=== PATIENT | male | born 1970 | race Caucasian/White ===

== ENCOUNTER 2017-01-09 21:20 | Inpatient (IN) | payer OTHER ==
--- NOTE | ~2017-01-09 | CO ---
Unit #: [id number] #: [id number] Patient: HARRISON LINARES [id number] [address] [place], [place] [address] [id number] MR#: [id number] NAME: HARRISON LINARES. ROOM: 237 Age: 46 Sex: M Admission Date: 01/10/2017 : 1970 Attending Physician: Cee Davila M.D. Primary Care Physician: Junior Rodriguez M.D. Consultation Date: 01/10/2017 CONSULTATION REPORT CHIEF COMPLAINT Left arm pain and swelling. HISTORY OF PRESENT ILLNESS The patient is a 46-year-old male with poorly-controlled diabetes, who struck his left elbow five days ago and has now developed increasing pain, erythema, swelling, and stiffness. He denies fevers or chills. He is admitted with a presumptive diagnosis of left arm cellulitis. PAST MEDICAL HISTORY Adult-onset diabetes for 30 years, for which he is supposed to take Metformin. He has run out of the medicine two months ago and is not currently taking it. HOME MEDICATIONS Metformin, which he has not taken for two months. PAST SURGICAL HISTORY None. ALLERGIES No known drug allergies. 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 He lives with his sister. He quit smoking 10 years ago. He drinks alcohol occasionally. PHYSICAL EXAMINATION GENERAL: A middle-aged male. He is alert, oriented, cooperative. He is in no acute distress. Height 6 foot tall, weight 224 pounds. VITAL SIGNS: Temperature 98.5, blood pressure 146/71, pulse 100, respirations 20. EXTREMITIES: Evaluation of the left arm demonstrates moderate swelling. He has erythema overlying his elbow as well as the dorsal and volar aspects of his forearm. There is some mild erythema on the medial aspect of his upper arm. No axillary lymphadenopathy is palpated. There is no evidence of fluctuance on the forearm or overlying the elbow. The olecranon bursa is not fluctuant. Range of motion of the elbow is 10 degrees to 110 degrees without significant pain. Pronation and supination is normal. Sensation is normal. Pulses are normal. Motor exam is normal. The patient also notes that he recently accidentally avulsed his left fifth toenail. Evaluation of the left foot demonstrates a cavus deformity. The fifth toenail was absent. There is some mild erythema Unit #: [id number] #: [id number] Patient: HARRISON LINARES around the toe, but there is no evidence of infection. DIAGNOSTIC STUDIES LABORATORY: Hemoglobin 11, hematocrit 32.6, white blood cell count 9.5 thousand with 79% polys, 11% lymphocytes, 8% monocytes. Sed rate on admission is 127. Basic metabolic profile shows a sodium of 132 and glucose of 232. IMAGING: AP and lateral views of the left elbow show no bony changes. The patient does have soft tissue swelling. There is no evidence of effusion of the joint. Left foot x-rays show a cavus deformity without evidence of bony changes, arthritis, fracture, or osteomyelitis. IMPRESSION 1. Left arm and forearm cellulitis without evidence of septic olecranon bursitis. 2. Avulsion left fifth toenail. 3. Poorly controlled noninsulin dependent diabetes. PLAN 1. Continue IV vancomycin and Zosyn. 2. We will follow during this admission to ensure that an abscess does not form in the arm which requires incision and drainage. Currently, there is no need for surgical intervention. Dictated byHeather Alfred/kellen TD: 01/10/2017 10:51 JOB #: [id number] CONSULTATION REPORT Page 1 of 1 X Angela Shay MD X CONSULTATION REPORT
--- NOTE | ~2017-01-09 | CR93 ---
[facility] A Service of [facility] & [facility] RADIOLOGY TEXT RESULTS PATIENT: HARRISON LINARES LOCATION: SED [id number] : [birth year] UNIT #: [id number] AGE: [address]: Cahnda Camp MD SEX: M ORDER DR: [id number] [address] [address] [id number] MR#: [id number] Acc #: [id number] NAME: HARRISON LINARES : 1970 SEX: M STUDY DATE/TIME: 01/09/2017 22:49 UNIT: SED ROOM: STUDY DESCRIPTION: CR Elbow Min 3 Views Lt Attending Physician: Javid Rowe M.D. Ordering Physician: Javid Rowe M.D. Primary Care Physician: Junior Rodriguez M.D. MEDICAL IMAGING REPORT This report is preliminary unless electronic signature is present. EXAM Left elbow INDICATIONS Left elbow pain status post hit elbow on a wall. Laceration. FINDINGS Three views of the left elbow without comparison. There is no acute fracture or dislocation. There is some soft tissue swelling over the olecranon. No foreign body. IMPRESSION Soft tissue swelling over the olecranon. No foreign body. Dictated by... Young Fontenot M.D. THIS IS AN ELECTRONICALLY VERIFIED REPORT Young Fontenot M.D. at 01/10/2017 1:06 AM Angelic/earle TD: 01/10/2017 00:22 JOB #: [id number] MEDICAL IMAGING REPORT Page 1 of 1
--- NOTE | ~2017-01-09 | CR126 ---
[facility]. [facility] A Service of [facility] & [facility] RADIOLOGY TEXT RESULTS PATIENT: HARRISON LINARES LOCATION: [facility] [id number] : [birth year] UNIT #: [id number] AGE: [address]: Chanda Camp MD SEX: M ORDER DR: [id number] [address] [address] [id number] E MR#: [id number] Acc #: [id number] NAME: HARRISON LINARES : 1970 SEX: M STUDY DATE/TIME: 01/09/2017 22:49 UNIT: SED ROOM: STUDY DESCRIPTION: CR Foot Complete Min 3 View Lt Attending Physician: Javid Rowe M.D. Ordering Physician: Javid Rowe M.D. Primary Care Physician: Junior Rodriguez M.D. MEDICAL IMAGING REPORT This report is preliminary unless electronic signature is present. EXAM Left foot INDICATION Laceration to the left foot. Pain. FINDINGS 3 views of the left foot without comparison. There is no acute fracture or dislocation. Alignment is anatomic. No foreign body. IMPRESSION Negative left foot. Dictated by... Young Fontenot M.D. THIS IS AN ELECTRONICALLY VERIFIED REPORT Young Fontenot M.D. at 01/10/2017 1:06 AM KYLE/charles TD: 01/10/2017 00:24 JOB #: [id number] MEDICAL IMAGING REPORT Page 1 of 1
--- NOTE | ~2017-01-09 | DS ---
Unit #: [id number] #: [id number] Patient: HARRISON LINARES [id number] [address] [address] [id number] I MR#: [id number] NAME: HARRISON LINARES ROOM: 237 Age: Sex: M Admission Date: 01/10/2017 : 1970 Discharge Date: 01/14/2017 Attending Physician: Disha Peralta M.D. Primary Care Physician: Junior Rodriguez M.D. DISCHARGE SUMMARY ADDENDUM Please note patient was seen by Infectious Disease and his Zyvox was increased to 14 days and thus he was given 28 tablets total. Dictated by... Disha Peralta M.D. ISABELLA/michelle TD: 01/15/2017 18:57 JOB #: [id number] DISCHARGE SUMMARY Page 1 of 1 X Disha Peralta MD X DISCHARGE SUMMARY
--- NOTE | ~2017-01-09 | HP ---
Unit #: [id number] #: [id number] Patient: HARRISON LINARES [id number] [address] [place], [place] [address] [id number] I MR#: [id number] NAME: HARRISON LINARES. ROOM: 237 Age: 46 Sex: M Admission Date: 01/10/2017 : 1970 Attending Physician: Chanda Camp M.D. Primary Care Physician: Junior Rodriguez M.D. HISTORY AND PHYSICAL CHIEF COMPLAINT Extensive left upper extremity cellulitis and uncontrolled diabetes mellitus. HISTORY This very pleasant, 46-year-old, type 2 diabetic male was transferred from [facility] emergency department for extensive cellulitis of the left upper extremity. Five days ago, the patient developed increasing pain, swelling, and redness of the left upper extremity initially starting around the left elbow. The redness and swelling have extended into the upper left arm and all the way down into the left hand. No fever, sweats, or chills. There are no open areas over the left arm. Patient is diabetic, but ran out of his metformin two months ago. He went to [facility] emergency department where his serum glucose was 397. He has extensive cellulitis of the left upper extremity. Also, on examination, he has superficial wounds over his left fourth and fifth toes with erythema after the left fifth toenail avulsed a couple of weeks ago. He was treated with a liter of saline, Tylenol, vancomycin, Zosyn, and 6 units of IV insulin prior to transfer. His current Accu-Chek is 246. PAST MEDICAL HISTORY AODM x20-30 years. ALLERGIES None. HOME MEDICATIONS Metformin. Patient was taking metformin, but ran out of this medication two months ago. FAMILY HISTORY CAD and diabetes mellitus. SOCIAL HISTORY The patient lives with his sister. He stopped smoking 2006, seldom drinks alcohol, and does not use illicit drugs. REVIEW OF SYSTEMS Notable for pain, swelling, and redness of the left arm with a left foot wound and redness and diabetes mellitus. All other systems were reviewed and otherwise negative. Unit #: [id number] #: [id number] Patient: HARRISON LINARES PHYSICAL EXAMINATION GENERAL APPEARANCE: Very pleasant, 46-year-old, mildly obese male who currently is in no acute distress. VITAL SIGNS: Temperature 99, pulse 119, respirations 16, blood pressure 179/97, and O2 saturation is 100% on room air. HEENT: Eyes: PERRLA. Extraocular muscles are intact. Pharynx is benign with somewhat poor dentition. NECK: Supple without adenopathy or thyromegaly. CHEST: Clear. CARDIAC: Normal S1 and S2 without S3, S4, or murmur. ABDOMEN: Bowels sounds are present. No hepatosplenomegaly, tenderness, or masses. EXTREMITIES: Notable for extensive cellulitis over the left upper extremity from the left upper arm down into the left hand. Patient is able to move his left elbow and straighten out the left elbow. He is able to move the left wrist. Movement does cause pain, but patient has good range of motion. He has quite a bit of swelling near the left elbow as well. Fourth and fifth toes: Nail avulsed left fifth toe, and there is a wound over the fourth left toe with redness of both toes. Pedal pulses are present. No pedal edema. NEUROLOGIC: Patient is awake, alert, and oriented. Cranial nerves are intact. Equal strength throughout. Of note, patient has a good left radial pulse. DIAGNOSTIC STUDIES LABORATORY: Admission labs: Hematocrit is 36.2, white blood count is 10.5, and normal platelet count. Sed rate is 127. SMA-7: Glucose 397 and sodium 128, which corrects to about 134. Urinalysis: 2+ protein, 3+ blood, 5-10 red cells, and no white cells. ASSESSMENT 1. Extensive left upper extremity cellulitis. I suspect patient could have septic left olecranon bursitis as etiology. 2. Wounds and early cellulitis over the left fourth and fifth toes. 3. Uncontrolled type 2 diabetes mellitus, noncompliant with Glucophage. 4. Pseudohyponatremia. 5. Elevated blood pressure. PLANS 1. Zosyn and vancomycin will be continued and will ask orthopedic surgeon to see. 2. IV fluids and supportive treatment. 3. Sliding scale insulin for now and check hemoglobin A1c. Will need to start metformin when stable. 4. C and S of the left foot wound, will add Bactroban and dressings. 5. DVT prophylaxis. 6. Monitor blood pressure and treat if persistently elevated. Dictated by Chanda Camp M.D. TOSHA/pc TD: 01/10/2017 05:55 JOB #: [id number] Unit #: [id number] #: [id number] Patient: HARRISON LINARES HISTORY AND PHYSICAL Page 1 of 1 X Chanda Camp MD X HISTORY AND PHYSICAL
--- NOTE | ~2017-01-09 | DS ---
Unit #: [id number] #: [id number] Patient: HARRISON LINARES [id number] [address] [address] [id number] I MR#: [id number] NAME: HARRISON LINARES ROOM: 237 Age: 46 Sex: M Admission Date: 01/10/2017 : 1970 Discharge Date: 01/14/2017 Attending Physician: Disha Peralta M.D. Primary Care Physician: Junior Rodriguez M.D. DISCHARGE SUMMARY PRIMARY CARE PHYSICIAN Dr. Rodriguez. PRINCIPAL DIAGNOSES 1. Extensive left arm cellulitis. 2. Diabetes mellitus type 2, uncontrolled with hemoglobin A1c of 10.7. 3. Hypertension, controlled. 4. Left fourth and fifth toe cellulitis, mild with methicillin-susceptible Staphylococcus aureus. 5. Obesity. 6. Moderate protein malnutrition. CONSULTANTS 1. Dr. Sullivan, Infectious Disease. 2. Dr. Damon, Orthopedic Surgery. PROCEDURES 1. X-ray of the left elbow on January 09, 2017, with soft tissue swelling over the olecranon. No foreign body. 2. X-ray of left foot on January 09, 2017, which was negative. 3. CT of the left upper extremity with contrast on January 11, 2017, with moderate diffuse subcutaneous stranding throughout the forearm and distal upper arm and over the dorsum of the hand and wrist consistent with cellulitis. There is no evidence of abscess, fracture, or foreign body. CLINICAL HISTORY AND HOSPITAL COURSE Mr. Linares is a 46-year-old male, who presents to the emergency department with redness and swelling of the left arm. In the emergency department, the patient was afebrile, and white blood cell count was normal, however, his glucose was found to be 400. On examination, he had significant cellulitis. He was also found to have cellulitis of the left arm in addition to cellulitis of the left fourth and fifth toes. The patient was subsequently admitted. The patient was started on empiric Zosyn and vancomycin. Initially, Dr. Damon was consulted given there was concern for underlying abscess of the arm given a significant amount of induration. CT scan however did not reveal any abscess and no surgical intervention was done. Dr. Sullivan was consulted given the wound was not improving and antibiotics were changed to Zosyn and Zyvox. With change in antibiotics, the patient's swelling and erythema have significantly improved, though not completely resolved. He has remained afebrile throughout hospitalization. He has had no leukocytosis. I am going to arrange outpatient Zyvox and complete a Unit #: [id number] #: [id number] Patient: HARRISON LINARES course of treatment. As noted above, the patient is significantly hyperglycemic in the emergency department. He is not taking any medications at this time. He was maintained on insulin here, which honestly would be the best option for him, but given his line of work, I do not think it is feasible. I am going to change to back to metformin 1000 mg b.i.d. in addition to glipizide given he does not have insurance and he will need his sugars followed up by Dr. Rodriguez. The patient was also significantly hypertensive. I placed him on metoprolol, lisinopril, and hydrochlorothiazide, and blood pressure still mildly high. I think we will discharge him on these medications and again this can be followed up by Dr. Rodriguez. The patient is otherwise clinically stable and will be discharged home today. DISCHARGE CONDITION Stable. DISCHARGE STATUS Discharged to home. DISCHARGE MEDICATIONS Bactroban ointment topically b.i.d. to left fourth and fifth toes x5 days, metoprolol tartrate 25 mg b.i.d. with 2 refills given, hydrochlorothiazide 25 mg daily with 2 refills given, Zestril 40 mg daily with 2 refills given, metformin 1000 mg b.i.d. with 2 refills given, glipizide 10 mg p.o. daily with 2 refills given, oxycodone 7.5 mg one tablet every 4 hours p.r.n. for pain given #18, and Zyvox 600 mg p.o. b.i.d. for another 7 days. I have also supplied the patient with glucometer and test strips. DISCHARGE INSTRUCTIONS The patient was instructed to follow a heart healthy CCD diet and again he has received instruction. He can increase the activity as tolerated. He will remain off work through January 16, he can return to work on January 17. FOLLOWUP The patient will follow up Dr. Rodriguez in 2 weeks. Time spent on discharge, 34 minutes. Dictated by... Disha Peralta M.D. ISABELLA/rodríguez TD: 01/15/2017 23:42 JOB #: [id number] Unit #: [id number] #: [id number] Patient: HARRISON LINARES DISCHARGE SUMMARY Page 1 of 1 X Disha Peralta MD X DISCHARGE SUMMARY
--- NOTE | ~2017-01-09 | CO ---
Unit #: [id number] #: [id number] Patient: HARRISON LINARES [id number] [address] [place], [place] [address] [id number] MR#: [id number] NAME: HARRISON LINARES ROOM: 237 Age: 46 Sex: M Admission Date: 01/10/2017 : 1970 Attending Physician: Disha Peralta M.D. Primary Care Physician: Junior Rodriguez M.D. Consultation Date: 01/12/2017 CONSULTATION REPORT REQUESTING PHYSICIAN . REASON FOR CONSULTATION Left upper extremity cellulitis. HISTORY OF PRESENT ILLNESS This is a 46-year-old gentleman with type 2 diabetes, who is admitted with pain, redness, and swelling involving the left forearm distal hand and proximal arm, significant septic arthritis or osteomyelitis. He was started on Zyvox, vancomycin, and Zosyn. Culture was obtained from the foot also, which does not have any signs of infection. Blood cultures growing MSSA, but has had probably attributed with the cellulitis of the left upper extremity. There is no evidence of any injury, open wound, abrasion or bites involving the left upper extremity alone. The patient is clinically stable. Does not have any symptoms of sepsis or septic shock at this time. Able to move his wrist and elbow without any problems. PAST MEDICAL HISTORY Diabetes for 30 years, controlled, is not clearly known. MEDICATIONS Home medication, metformin. In the hospital; he is on Zestril, Zyvox, Percocet, Levemir, Bactroban, Lopressor, Zosyn, Florastor, morphine, Percocet. Vancomycin was started, but discontinued today. ALLERGIES None. FAMILY HISTORY Coronary artery disease and diabetes. SOCIAL HISTORY Lives with his sister. He quit smoking in 2006. No alcohol. No drug use. SYSTEMIC REVIEW Left arm pain, redness, and swelling. No fever or chills. No cough, abdominal pain, dysuria. No mental status changes were noted. PHYSICAL EXAMINATION GENERAL: Reveals a young white male, who is awake and alert, in no acute Unit #: [id number] #: [id number] Patient: HARRISON LINARES. VITAL SIGNS: Stable. Temperature 98.4, T-max 99%, respirations 20, heart rate 110, blood pressure 170/90. HEENT: Unremarkable. Oral hygiene is poor. NECK: Supple. No JVD or edema. LUNGS: Clear to percussion and auscultation.. HEART: Sounds are normal. There are no murmurs. ABDOMEN: Soft and nontender without organomegaly or ascites. Bowel sounds normal. NEUROLOGIC: Nonfocal. EXTREMITIES: Left upper extremity examination reveal diffuse cellulitis of the left forearm, that goes through lateral aspect involving the elbow and distal 2 inches of the upper arm. There is also some involvement of the left hand dorsum, mainly on the wrist. Range of motion of wrist and elbow are normal. There is no evidence of a clinical abscess. DIAGNOSTIC LABORATORY DATA White count on admission was 10.5, hemoglobin 11.9, platelet 241, neutrophil 77%. Urinalysis, negative. Sodium 128, potassium 4.5, chloride 91, CO2 is 29, BUN 22, creatinine 1.3. Lactic acid . X-ray of the elbow showed some tissue swelling. No foreign body. Blood cultures, negative in 48 hours. Wound culture, which is actually from clean left foot also shows MSSA that needs to be disregarded, so that is not the pathogen. CT of the forearm shows moderate diffuse subcutaneous stranding throughout the forearm to lesser degree it is still on the upper arm and over the dorsum of the hand and the wrist, consistent with cellulitis. There is no abscess or fracture. IMPRESSION Cellulitis in left upper extremity, most likely Staphylococcus aureus, MRSA to be excluded. RECOMMENDATION I agree with Zyvox and Zosyn at this time with a clinical response and if blood culture becomes positive, further recommendation to follow. Dictated by... Heather Giles/rodríguez TD: 01/14/2017 05:43 JOB #: [id number] CONSULTATION REPORT Page 1 of 1 X Torres Sullivan MD X CONSULTATION REPORT
--- NOTE | ~2017-01-09 | A ---
[facility] Nutrition Therapy DATE: 01/12/17 Patient: HARRISON LINARES Physician: LO Address: [address] [place] [address] Room/Bed: [address] [place] [address], Zip: [place] [id number] Admit Date: 01/10/17 Date of : [birth year] Height: 6 0 Weight: 224 102 NUTRITIONAL ASSESSMENT: REASON: Diabetic diet education consult Admitting dx: 46 y/o male admitted with cellulitis and uncontrolled DM PMH: T2DM x 20-30 yrs Anthropometrics: Ht: 72", Wt: 102 kg, BMI: 30 (stage I obese) Labs: glucose 180, POC 179-209, A1C 10.7 Meds: Reviewed Assessment: Chart reviewed, events noted. Pt ran out of Metformin x [address] provided both verbal and written diabetic diet education with contact info. Pt reports doesn't usually eat breakfast except on the weekends at [employer], meal schedule not consistent. Admits to eating whatever he wants and consuming regular sodas. Lives with his sister who mainly does the grocery shopping, encouraged pt to share handouts with his sister. Pt states he has not received diet education in the past. Understanding of education questionable as the patient was irritated about his IV, seemed to have low motivation and education level, did not want to talk much but was cooperative with the education. RD encouraged dietary and medication compliance and weight loss. Pt did not have any questions at this time. Recommendations: Continue consistent carb diet. Diet education provided as stated above, please consult with any further needs. Respectfully, Joan Rowe, CRISS, LD [facility] and Nutrition[facility] cc: client file
--- NOTE | ~2017-01-09 | CT125 ---
[facility] A Service of [facility] RADIOLOGY TEXT RESULTS PATIENT: HARRISON LINARES LOCATION: [facility] : [birth year] UNIT #: [id number] AGE: [address]: Disha Peralta MD SEX: M ORDER DR: [id number] [facility]. [place], [place] [address] [id number] I MR#: [id number] Acc #: [id number] NAME: HARRISON LINARES. : 1970 SEX: M STUDY DATE/TIME: 01/11/2017 20:40 UNIT: [facility] ROOM: Critical access hospital STUDY DESCRIPTION: CT Upper Ext Lt W Cont Attending Physician: Disha Peralta M.D. Ordering Physician: Physician Non-Staff Primary Care Physician: Junior Rodriguez M.D. MEDICAL IMAGING REPORT This report is preliminary unless electronic signature is present EXAM CT left upper extremity with IV contrast HISTORY Arm swelling and erythema. Symptoms for 1 week. Hit arm on a wall. TECHNIQUE This CT exam was performed with one or more of the following radiation dose reduction techniques: automatic exposure control, adjustment of mA and/or kV according to patient size, and iterative reconstruction. FINDINGS CT left upper extremity was performed from the distal upper arm through the hand, with IV contrast. There is moderate diffuse subcutaneous stranding throughout the forearm and wrist and mild subcutaneous stranding in the distal upper arm and over the dorsum of the hand. The posterior margin of the elbow is partly excluded. No loculated fluid collection or soft tissue gas. No opaque soft tissue foreign body. No fractures identified. IMPRESSION 1. Moderate diffuse subcutaneous stranding throughout the forearm and to a lesser degree in the distal upper arm and over the dorsum of the hand and about the wrist. Findings are suggestive of diffuse edema or cellulitis. 2. No abscess. 3. No fracture. 4. No opaque soft tissue foreign body. 5. Posterior margin of the elbow is partly excluded due to positioning. Dictated by... [facility] A Service [facility] RADIOLOGY TEXT RESULTS PATIENT: HARRISON LINARES LOCATION: [facility] 237-01 : [birth year] UNIT #: [id number] AGE: [address]: Disha Peralta MD SEX: M ORDER DR: Frandy Garcia M.D. THIS IS AN ELECTRONICALLY VERIFIED REPORT Frandy Garcia M.D. at 01/12/2017 2:48 PM JED/jailene TD: 01/12/2017 12:23 JOB #: [id number] MEDICAL IMAGING REPORT Page 1 of 1 COPY
[2017-01-09 22:26] LABS: BASOPHIL% 0.2 % (0-2.5); EOSINOPHIL% 0.3 % (0.0-7.0); HEMATOCRIT 36.2 % (38.0-50.0); HEMOGLOBIN 11.9 gm/dL (13.0-16.0); LYMPHOCYTE# 1.4 X10e3 (1.0-3.5); LYMPHOCYTE% 13.5 % (17.0-45.0); MEAN CORPUSCULAR HEMOGLOBIN 29.7 PG (28-34); MONOCYTE# 0.9 X10e3 (0-1.0); MONOCYTE% 8.8 % (3.0-12.0); NEUTROPHIL# 8.1 X10e3 (1.5-7.1); NEUTROPHIL% 77.2 % (40-75); PLATELET COUNT 241 X10e3 (140-420); RED BLOOD COUNT 4.02 X10e (3.90-5.60); RED CELL DISTRIBUTION WIDTH 12.5 % (11.0-15.5); WHITE BLOOD COUNT 10.5 X10e3 (4.0-10.5)
[2017-01-09 22:29] LABS: DIFF IND NO
[2017-01-09 22:34] LABS: URINE SOURCE CLEAN CATCH
[2017-01-09 22:36] LABS: URINE APPEARANCE CLEAR; URINE BILIRUBIN NEG (NEG); URINE BLOOD 3+ (NEG); URINE COLOR YELLOW; URINE GLUCOSE 300 MG/DL (NORM); URINE KETONE NEG (NEG); URINE LEUKOCYTE ESTERASE NEG (NEG); URINE NITRATE NEG (NEG); URINE PH 5.5 (5-8); URINE PROTEIN 2+ (NEG); URINE UROBILINOGEN 0.2 MG/DL (NORM)
[2017-01-09 22:37] LABS: MICRO INDICATED? YES
[2017-01-09 22:38] LABS: CULTURE INDICATED? NO; URINE BACTERIA NEG (NEG); URINE SQUAMOUS EPITHELIAL CELL FEW /[HPF]; URINE WBC 0-2 /[HPF] (0-5)
[2017-01-09 22:39] LABS: URINE HYALINE CAST 0-2 /[HPF]; URINE MUCUS PRESENT
[2017-01-09 22:42] LABS: BUN/CREATININE RATIO 16.92; CALCIUM SERUM 9.2 mg/dL (8.4-10.2); CREATININE SERUM 1.3 mg/dL (0.6-1.4); GLOM FILT RATE Estimated 65.5 mL/min (>60); POTASSIUM 4.5 mmol/L (3.5-5.1)
[2017-01-10 06:19] LABS: BASOPHIL% 0.2 % (0-2.5); EOSINOPHIL# 0.1 X10e3 (0-0.7); HEMATOCRIT 32.6 % (38.0-50.0); LYMPHOCYTE# 1.1 X10e3 (1.0-3.5); LYMPHOCYTE% 11.4 % (17.0-45.0); MEAN CELL VOLUME 88.7 FL (83-96); MEAN CORPUSCULAR HEMOGLOBIN 29.9 PG (28-34); MEAN CORPUSCULAR HGB CONC 33.7 g/dL (30-36); MEAN PLATELET VOLUME 8.3 FL (6.5-11.5); MONOCYTE# 0.8 X10e3 (0-1.0); MONOCYTE% 8.5 % (3.0-12.0); NEUTROPHIL# 7.5 X10e3 (1.5-7.1); NEUTROPHIL% 78.9 % (40-75); PLATELET COUNT 214 X10e3 (140-420); RED BLOOD COUNT 3.67 X10e (3.90-5.60); RED CELL DISTRIBUTION WIDTH 12.4 % (11.0-15.5); WHITE BLOOD COUNT 9.5 X10e3 (4.0-10.5)
[2017-01-10 06:26] LABS: DIFF IND NO
[2017-01-10 07:26] LABS: BILIRUBIN,TOTAL 0.8 mg/dL (0.2-2.0); CALCIUM SERUM 8.5 mg/dL (8.4-10.2); CREATININE SERUM 0.9 mg/dL (0.6-1.4); GLOM FILT RATE Estimated 102.1 mL/min (>60); POTASSIUM 3.6 mmol/L (3.5-5.1); PROTEIN TOTAL SERUM 6.9 g/dL (6.0-8.3)
[2017-01-11 06:30] LABS: BASOPHIL% 0.1 % (0-2.5); EOSINOPHIL# 0.1 X10e3 (0-0.7); EOSINOPHIL% 0.6 % (0.0-7.0); HEMATOCRIT 35.3 % (38.0-50.0); HEMOGLOBIN 11.8 gm/dL (13.0-16.0); LYMPHOCYTE# 1.1 X10e3 (1.0-3.5); LYMPHOCYTE% 11.4 % (17.0-45.0); MEAN CELL VOLUME 89.7 FL (83-96); MEAN CORPUSCULAR HEMOGLOBIN 29.9 PG (28-34); MEAN CORPUSCULAR HGB CONC 33.3 g/dL (30-36); MEAN PLATELET VOLUME 8.4 FL (6.5-11.5); MONOCYTE# 0.9 X10e3 (0-1.0); MONOCYTE% 8.9 % (3.0-12.0); NEUTROPHIL# 7.6 X10e3 (1.5-7.1); PLATELET COUNT 234 X10e3 (140-420); RED BLOOD COUNT 3.94 X10e (3.90-5.60); RED CELL DISTRIBUTION WIDTH 12.8 % (11.0-15.5); WHITE BLOOD COUNT 9.6 X10e3 (4.0-10.5)
[2017-01-11 06:31] LABS: DIFF IND NO
[2017-01-11 07:24] LABS: ALBUMIN SERUM 2.9 g/dL (3.5-5.0); BILIRUBIN,TOTAL 0.4 mg/dL (0.2-2.0); BUN/CREATININE RATIO 17.5; CALCIUM SERUM 8.6 mg/dL (8.4-10.2); CREATININE SERUM 0.8 mg/dL (0.6-1.4); GLOM FILT RATE Estimated 107.2 mL/min (>60); POTASSIUM 4.4 mmol/L (3.5-5.1); PROTEIN TOTAL SERUM 6.9 g/dL (6.0-8.3)
[2017-01-12 05:51] LABS: HEMATOCRIT 35.9 % (38.0-50.0); HEMOGLOBIN 11.8 gm/dL (13.0-16.0); MEAN CELL VOLUME 90.3 FL (83-96); MEAN CORPUSCULAR HEMOGLOBIN 29.7 PG (28-34); MEAN CORPUSCULAR HGB CONC 32.9 g/dL (30-36); MEAN PLATELET VOLUME 8.5 FL (6.5-11.5); RED BLOOD COUNT 3.98 X10e (3.90-5.60); RED CELL DISTRIBUTION WIDTH 12.9 % (11.0-15.5); WHITE BLOOD COUNT 9.5 X10e3 (4.0-10.5)
[2017-01-12 06:31] LABS: ALBUMIN SERUM 2.7 g/dL (3.5-5.0); BILIRUBIN,TOTAL 0.8 mg/dL (0.2-2.0); BUN/CREATININE RATIO 16.25; CALCIUM SERUM 8.6 mg/dL (8.4-10.2); CREATININE SERUM 0.8 mg/dL (0.6-1.4); GLOM FILT RATE Estimated 107.2 mL/min (>60); POTASSIUM 4.3 mmol/L (3.5-5.1); PROTEIN TOTAL SERUM 6.8 g/dL (6.0-8.3)
[2017-01-13 06:49] LABS: CALCIUM SERUM 8.3 mg/dL (8.4-10.2); CREATININE SERUM 0.9 mg/dL (0.6-1.4); GLOM FILT RATE Estimated 102.1 mL/min (>60); POTASSIUM 3.9 mmol/L (3.5-5.1)
[2017-01-14 06:05] LABS: HEMOGLOBIN 10.7 gm/dL (13.0-16.0); MEAN CELL VOLUME 88.3 FL (83-96); MEAN CORPUSCULAR HEMOGLOBIN 29.5 PG (28-34); MEAN CORPUSCULAR HGB CONC 33.4 g/dL (30-36); MEAN PLATELET VOLUME 8.1 FL (6.5-11.5); RED BLOOD COUNT 3.63 X10e (3.90-5.60); RED CELL DISTRIBUTION WIDTH 12.5 % (11.0-15.5); WHITE BLOOD COUNT 8.9 X10e3 (4.0-10.5)
[2017-01-14] MEDS ORDERED: GLUCOTROL10 MG PO (09:57)
[2017-01-14] MEDS ORDERED: METFORMIN PO (09:58)
[2017-01-14] MEDS ORDERED: LOPRESSOR PO (09:59)
[2017-01-14] MEDS ORDERED: HYDROCHLOROTHIA25 MG PO (09:59)
[2017-01-14] MEDS ORDERED: PERCOCET 7.5-31 EACH PO (10:00)
[2017-01-14] MEDS ORDERED: PRINIVIL40 MG PO (10:01)
[2017-01-14] MEDS ORDERED: ZYVOX600 MG PO (10:01)
[2017-01-14] MEDS ORDERED: BACTROBAN15 GM TOP (10:10)
== END 2017-01-14 12:29 | disposition home or self-care (01) | DRG 638 ==
LOC: SED 21:20 → C2A 01-10 00:40 → SED 01-10 00:40 → CEDOF 01-10 00:40 → SEDOF 01-10 00:52 → C2A 01-10 02:52 → SEDOF 01-10 02:52 → CEDOF 01-10 04:15 → C2A 01-10 04:15 → SEDOF 01-10 04:15 → C2A 01-10 08:40
PROVIDERS: Emergency Medicine; Internal Medicine
PROC: 02HV33Z Insertion of Infusion Device into Superior Vena Cava, Percutaneous Approach (ICD-10-PCS; principal; 2017-01-12)
PROC: 4A02X4A Measurement of Cardiac Electrical Activity, Guidance, External Approach (ICD-10-PCS; 2017-01-12)
DX: E11.628 Type 2 diabetes mellitus with other skin complications (principal); L03.114 Cellulitis of left upper limb; B95.61 Methicillin susceptible Staphylococcus aureus infection as the cause of diseases classified elsewhere; E11.65 Type 2 diabetes mellitus with hyperglycemia; E87.1 Hypo-osmolality and hyponatremia; E44.1 Mild protein-calorie malnutrition; L03.032 Cellulitis of left toe; Z79.84 Long term (current) use of oral hypoglycemic drugs; Z91.14 Patient's other noncompliance with medication regimen; R03.0 Elevated blood-pressure reading, without diagnosis of hypertension; Z87.891 Personal history of nicotine dependence; S91.205A Unspecified open wound of left lesser toe(s) with damage to nail, initial encounter; X58.XXXA Exposure to other specified factors, initial encounter; E66.9 Obesity, unspecified; Z68.30 Body mass index [BMI] 30.0-30.9, adult
CPT/HCPCS: 36415; 73080; 73201; 73630; 80048; 80053; 81003; 82947; 83036; 83605; 85025; 85027; 85651; 87040; 87070; 87077; 87186; 87205; 96361; 96365; 96368; 96375; 99285; J1650; J1815; J2020; J2270; J2543; J3370; Q9967

== ENCOUNTER 2017-01-24 14:18 | Inpatient (IN) | payer OTHER ==
[~2017-01-24] VITALS: Ht 185.4 cm; Wt 102.0 kg
--- NOTE | ~2017-01-24 | HP ---
Unit #: [id number] #: [id number] Patient: HARRISON LINARES [id number] [address] [place], [place] [address] [id number] Tatiana MR#: [id number] NAME: HARRISON LINARES. ROOM: 226 Age: 46 Sex: M Admission Date: 01/24/2017 : 1970 Attending Physician: Disha Peralta M.D. Primary Care Physician: Junior Rodriguez M.D. HISTORY AND PHYSICAL HISTORY AND EXAM Mr. Linares is a 46-year-old gentleman with a history of diabetes who was being treated as an outpatient for cellulitis of the left forearm. Despite being on outpatient Zyvox, the erythema, pain and swelling progressed and he came back to the emergency room. In the emergency room a limited I and D was performed and gross purulent drainage was returned. This morning on examination, I can still express purulent drainage and there exists significant cellulitis in the forearm. This wound is incompletely drained and will need further drainage and debridement to facilitate wound care and resolution of the infection. PAST MEDICAL HISTORY Hypertension and diabetes. ALLERGIES No allergies to medication. HOME MEDICATIONS Metoprolol, hydrochlorothiazide, Zestril, metformin, glipizide, oxycodone, and he had been on Zyvox as an outpatient and followed by Dr. Sullivan. FAMILY HISTORY Atherosclerotic coronary artery disease, diabetes. SOCIAL HISTORY Lives with his sister. No longer smokes. Social alcohol drinker. Works as a [employer]. REVIEW OF SYSTEMS Otherwise unremarkable. CURRENT PHYSICAL EXAMINATION VITAL SIGNS: Temperature is 98.3, pulse 95, respirations 22, blood pressure 153/82. GENERAL: Awake, alert, and oriented. HEENT: Unremarkable except for poor dentition. CARDIAC: Regular rhythm. LUNGS: Clear. ABDOMEN: Soft. EXTREMITIES: Left upper extremity on the ventral aspect of the forearm there is about a 5 mm incision where the initial drainage occurred. There is erythema extending over most of the ventral forearm. I can express purulent drainage from a significant distance from the incision. This wound opening is inadequate to do adequate dressing care to this wound to Unit #: [id number] #: [id number] Patient: MILAGROS,HARRISON T adequately treat the infection. NEUROLOGIC: Grossly intact. DIAGNOSTIC STUDIES LABORATORY STUDIES: Basic metabolic panel is within normal limits. Hemoglobin 12.2, white count 6,800, platelets 390,000. ASSESSMENT AND PLAN Patient with progression of cellulitis to abscess that has been completely drained. Patient will need to have this opened up further to complete drainage and to debride the wound to facilitate ongoing wound care and resolution of the infection. I have discussed this with the patient including risks, benefits, complications and postoperative expectations to include prolonged dressings to the open wounds. He understands and agrees to proceed. Dictated by Heather Mata/mallory TD: 01/25/2017 07:43 JOB #: [id number] HISTORY AND PHYSICAL Page 1 of 1 X Freddie Sweeney MD HISTORY AND PHYSICAL
--- NOTE | ~2017-01-24 | HP ---
Unit #: [id number] #: [id number] Patient: HARRISON LINARES [id number] [address] [address] [id number] I MR#: [id number] NAME: HARRISON LINARES ROOM: 226 Age: 46 Sex: M Admission Date: 01/24/2017 : 1970 Attending Physician: Bettye Solis M.D. Primary Care Physician: Junior Rodriguez M.D. HISTORY AND PHYSICAL ADDENDUM I spoke with Dr. Sullivan regarding this patient. He advised to continue Zyvox and he will see the patient as an outpatient following surgery evaluation. Dictated by Heather Ervin/mallory TD: 01/25/2017 06:05 JOB #: [id number] HISTORY AND PHYSICAL Page 1 of 1 X Bettye Solis MD X HISTORY AND PHYSICAL
--- NOTE | ~2017-01-24 | OR ---
Unit #: [id number] #: [id number] Patient: HARRISON LINARES [id number] [address] [address] [id number] Tatiana MR#: [id number] NAME: HARRISON LINARES ROOM: 226 Date of Procedure: 01/25/2017 Admission Date: 01/24/2017 Surgeon: Scout Valencia III, M.D. : 1970 Attending Physician: Disha Peralta M.D. Primary Care Physician: Junior Rodriguez M.D. OPERATIVE REPORT POSTOPERATIVE DIAGNOSIS Inadequately drained left forearm abscess. POSTOPERATIVE DIAGNOSIS Inadequately drained left forearm abscess. PROCEDURE PERFORMED Sharp excisional debridement of left forearm wound cavity. This measured 2 x 3 cm. ANESTHESIA General. SPECIMEN Tissue sent to Pathology. COMPLICATIONS None apparent. ESTIMATED BLOOD LOSS Minimal. INDICATIONS FOR PROCEDURE This is a 46-year-old gentleman with diabetes, who has cellulitis and wound on his left forearm that has been inadequately drained. He is here today for debridement and washout. DESCRIPTION OF PROCEDURE After consent was obtained, the patient was brought to the operating room, placed in the supine position. General anesthetic was administered, and his left forearm was prepped and draped in standard surgical fashion. He had a prior small incision and drainage site from the ER in the left lateral forearm. I made an elliptical incision around this opening. I probed the deeper areas of the wound and broke up all the loculated areas. There was minimal residual purulence. I then achieved good hemostasis and I packed the wound with normal saline and wet-to-dry gauze. He tolerated the procedure without any problems and returned to the recovery room in stable condition. Dictated by... Scout Valencia III, M.D. Unit #: [id number] #: [id number] Patient: HARRISON LINARES VCL/modl TD: 01/27/2017 05:36 JOB #: [id number] OPERATIVE REPORT Page 1 of 1 X Scout Valencia III, MD X PROCEDURE OPERATIVE NOTE
--- NOTE | ~2017-01-24 | DS ---
Unit #: [id number] #: [id number] Patient: HARRISON LINARES [id number] [address] [address] [id number] I MR#: [id number] NAME: HARRISON LINARES ROOM: 226 Age: 46 Sex: M Admission Date: 01/24/2017 : 1970 Discharge Date: 01/26/2017 Attending Physician: Disha Peralta M.D. Primary Care Physician: Junior Rodriguez M.D. DISCHARGE SUMMARY PRINCIPAL DIAGNOSIS Obturated cellulitis of the left upper extremity secondary to staph aureus. SECONDARY DIAGNOSES 1. Hypomagnesemia. 2. Hypertension. 3. Diabetes. PROCEDURES PERFORMED Incision and drainage of the left forearm abscess on 01/25/2017. DIAGNOSTIC DATA LABORATORY: Wound culture positive for staph aureus, susceptibility still pending. DISCHARGE MEDICATIONS 1. Linezolid 600 mg p.o. q.12 h. 2. Metformin 1000 mg p.o. b.i.d. 3. Metoprolol 25 mg p.o. b.i.d. 4. HCTZ 25 mg p.o. daily. 5. Lisinopril 40 mg daily. 6. Glipizide 10 mg p.o. daily. 7. Aleve p.r.n. pain. 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 In the emergency room he was noted to have an area of fluctuance. Limited incision and drainage was performed and gross purulent discharge was removed. The patient was admitted to the hospital and was started on IV fluid and continued on Zyvox per recommendation of his infectious disease doctor, Dr. Sullivan. Surgery was consulted and Dr. Sweeney performed an incision and drainage on 01/25/2017. Today the patient is afebrile, feeling better and is adamant about going home. Cultures from the wound returned positive for staph aureus. Susceptibilities are still pending. However, previous susceptibility was significant for MSSA. I discussed the case with infectious disease and they are okay with discharging the patient on Zyvox with close followup by Dr. Sullivan in the outpatient setting. During the hospitalization the patient was also noted to have a magnesium of 1.5 and received one dose of magnesium oxide p.o. Unit #: [id number] #: [id number] Patient: HARRISON LINARES The patient is being discharge home. FOLLOWUP 1. Follow up with primary care physician in one to two weeks. 2. Follow up with Dr. Sweeney in one to two weeks. 3. Follow up with Dr. Sullivan. The patient will call their office on Saturday to get an appointment as soon as possible and refills on his Zyvox that he has at home until he is followed up. 4. The patient was instructed to return to the emergency room in case symptoms worsen. Dictated by... Alejandro Hill M.D. JOHN/giovani TD: 01/28/2017 09:00 JOB #: [id number] DISCHARGE SUMMARY Page 1 of 1 X X DISCHARGE SUMMARY
--- NOTE | ~2017-01-24 | HP ---
Unit #: [id number] #: [id number] Patient: HARRISON LINARES [id number] [facility]. [place], [place] [address] [id number] I MR#: [id number] NAME: HARRISON LINARES ROOM: 226 Age: 46 Sex: M Admission Date: 01/24/2017 : 1970 Attending Physician: Bettye Solis M.D. Primary Care Physician: Junior Rodriguez M.D. HISTORY AND PHYSICAL CHIEF COMPLAINT Abscess on forearm. HISTORY OF PRESENT ILLNESS The patient is a 46-year-old male with past medical history of hypertension, diabetes, who presented to the emergency department for evaluation of the above. Of note, the patient was hospitalized at [facility] January 10-2016 for extensive left arm cellulitis. He also had left fourth and fifth toe cellulitis. He was seen in consultation by Dr. Sullivan and discharged home on Zyvox which he has been taking as prescribed. He has also been seeing Dr. Sullivan as an outpatient. He apparently saw him today and was told to come to the emergency department for further evaluation. He was supposed to have an MRI but he was unable to tolerate the MRI due to claustrophobia. Today in the emergency department initial pulse and blood pressure were 83 and 116/58 respectively. Incision and drainage was done in the emergency department with removal of about 100 mL of purulent material. He was given vancomycin. He is being admitted to [facility] for evaluation and further treatment. Not mentioned above, the patient states that his arm has been persistently warm, red and painful. He states that it actually had gotten worse since returning home from the hospital. He denies any fever. He states that his blood sugars have been in the 150 to 175 range. He has been taking his medications as prescribed. PAST MEDICAL HISTORY 1. Admission to [facility] January 10-2016 for left upper extremity cellulitis and fourth and fifth toe cellulitis of the left foot. He was discharged home on Zyvox which he has been taking as prescribed. 2. Diabetes. The patient's hemoglobin A1C was 10.7 during the last admission. 3. Hypertension. PAST SURGICAL HISTORY None. SOCIAL HISTORY The patient lives with his sister. He quit smoking in 2006. He reports occasional use. Unit #: [id number] #: [id number] Patient: HARRISON LINARES FAMILY HISTORY Family history is notable for coronary artery disease and diabetes. ALLERGIES None. HOME MEDICATIONS Home medications per the discharge summary include: 1. Bactroban ointment b.i.d. to left fourth and fifth toes x5 days. 2. Metoprolol 25 mg b.i.d. 3. Hydrochlorothiazide 25 mg daily. 4. Zestril 40 mg daily. 5. Metformin 1000 mg b.i.d. 6. Glipizide 10 mg daily. 7. Oxycodone 7.5 mg q.4 h. p.r.n. 8. Zyvox 600 mg p.o. b.i.d. for an additional 14 days. DIAGNOSTIC STUDIES LABORATORY: Complete blood count notable for hemoglobin and hematocrit of 12.7 and 38.8 respectively, platelets are 467. Basic metabolic panel notable for a glucose of 156, chloride is 97, BUN and creatinine 30 and 1.2 respectively. Blood cultures from January 09 showed no growth after five days. Wound culture from January 10, 2017 from the fourth toe grew 3+ MSSA. PHYSICAL EXAMINATION VITAL SIGNS: Temperature is 98.7. Pulse 83. Respirations 15. Blood pressure 116/58. Oxygen saturation 100% on room air. GENERAL: The patient is a male who is awake and alert, in no acute distress. HEENT: The head is atraumatic. Mucous membranes are moist. NECK: Neck is supple. Trachea is midline. CARDIOVASCULAR: Regular rate and rhythm. LUNGS: Lungs are clear to auscultation bilaterally with no increased work of breathing. ABDOMEN: Abdomen is soft, nontender, with bowel sounds present in all four quadrants. EXTREMITIES: There is no pedal edema. The fourth digit demonstrates very mild erythema. The left upper extremity on the dorsal aspect demonstrates a bandage that is clean, dry and intact. There is visible erythema, warmth and edema involving the dorsal aspect of the left upper extremity including the olecranon. The patient does have a 2+ radial pulse. He is tender to palpation in this area. NEUROLOGIC: The patient is awake and alert. He follows commands. PSYCHIATRIC: Mood and affect are normal. The patient is cooperative. SKIN: Skin demonstrates the previously described abnormalities. ASSESSMENT The patient is a 46-year-old male with: 1. Left upper extremity abscess/cellulitis that has failed outpatient treatment with Zyvox. The patient received 2 g of vancomycin in the emergency department. 2. Hypertension. 3. Uncontrolled diabetes with a hemoglobin A1C of 10.7 on January 10, 2017. 4. History of left fourth and fifth toe methicillin-sensitive Staphylococcus aureus cellulitis. 5. Former smoker. Unit #: [id number] #: [id number] Patient: HARRISON LINARES PLAN 1. Admit to med/surg. 2. Healthy heart consistent carb diet. 3. N.p.o. after midnight for possible surgical intervention. 4. Blood cultures x2. 5. Wound culture and sensitivity. 6. Vancomycin IV and Zosyn IV pending further workup. 7. Consult [facility] regarding left upper extremity abscess. 8. Consult Dr. Sullivan regarding abscess/cellulitis. 9. Low dose sliding scale insulin with Accu-Cheks. 10. SCDs for DVT prophylaxis. 11. P.r.n. Tylenol. 12. P.r.n. Zofran. 13. Repeat labs in the morning. 14. Additional workup and consultants based on above. Dictated by Heather Ervin/michelle TD: 01/24/2017 22:59 JOB #: [id number] HISTORY AND PHYSICAL Page 1 of 1 X Bettye Solis MD X HISTORY AND PHYSICAL
[~2017-01-24 14:18] MED LIST: BACTROBAN15 GM TOP; GLUCOTROL10 MG PO; HYDROCHLOROTHIA25 MG PO; LOPRESSOR PO; METFORMIN PO; PERCOCET 7.5-31 EACH PO; PRINIVIL40 MG PO; ZYVOX600 MG PO
[2017-01-24 16:37] LABS: BASOPHIL% 0.4 % (0-2.5); EOSINOPHIL# 0.1 X10e3 (0-0.7); EOSINOPHIL% 0.9 % (0.0-7.0); HEMATOCRIT 38.8 % (38.0-50.0); HEMOGLOBIN 12.7 gm/dL (13.0-16.0); LYMPHOCYTE% 22.3 % (17.0-45.0); MEAN CELL VOLUME 89.2 FL (83-96); MEAN CORPUSCULAR HEMOGLOBIN 29.3 PG (28-34); MEAN CORPUSCULAR HGB CONC 32.8 g/dL (30-36); MEAN PLATELET VOLUME 7.3 FL (6.5-11.5); MONOCYTE# 0.6 X10e3 (0-1.0); NEUTROPHIL# 6.1 X10e3 (1.5-7.1); NEUTROPHIL% 69.4 % (40-75); PLATELET COUNT 467 X10e3 (140-420); RED BLOOD COUNT 4.35 X10e (3.90-5.60); RED CELL DISTRIBUTION WIDTH 13.1 % (11.0-15.5); WHITE BLOOD COUNT 8.8 X10e3 (4.0-10.5)
[2017-01-24 16:44] LABS: DIFF IND NO
[2017-01-24 17:04] LABS: CALCIUM SERUM 9.8 mg/dL (8.4-10.2); CREATININE SERUM 1.2 mg/dL (0.6-1.4); GLOM FILT RATE Estimated 72.1 mL/min (>60); POTASSIUM 4.8 mmol/L (3.5-5.1)
[2017-01-24] MEDS ORDERED: PRINIVIL40 MG PO (22:23)
[2017-01-24] MEDS ORDERED: ZYVOX600 MG PO (22:24)
[2017-01-24] MEDS ORDERED: OXYCODON-ACETA1 EAC1 PO (22:25)
[2017-01-24] MEDS ORDERED: METOPROLOL TART25 MG PO (22:27)
[2017-01-24] MEDS ORDERED: HYDROCHLOROTHIA25 MG PO (22:28)
[2017-01-24] MEDS ORDERED: METFORMIN PO (22:29)
[2017-01-24] MEDS ORDERED: GLUCOTROL10 MG PO (22:29)
[2017-01-25 06:08] LABS: BASOPHIL% 0.5 % (0-2.5); EOSINOPHIL# 0.1 X10e3 (0-0.7); EOSINOPHIL% 1.2 % (0.0-7.0); HEMATOCRIT 37.4 % (38.0-50.0); HEMOGLOBIN 12.2 gm/dL (13.0-16.0); LYMPHOCYTE# 2.4 X10e3 (1.0-3.5); LYMPHOCYTE% 34.9 % (17.0-45.0); MEAN CELL VOLUME 89.8 FL (83-96); MEAN CORPUSCULAR HEMOGLOBIN 29.2 PG (28-34); MEAN CORPUSCULAR HGB CONC 32.6 g/dL (30-36); MEAN PLATELET VOLUME 7.8 FL (6.5-11.5); MONOCYTE# 0.6 X10e3 (0-1.0); NEUTROPHIL# 3.7 X10e3 (1.5-7.1); NEUTROPHIL% 54.4 % (40-75); PLATELET COUNT 390 X10e3 (140-420); RED BLOOD COUNT 4.17 X10e (3.90-5.60); WHITE BLOOD COUNT 6.8 X10e3 (4.0-10.5)
[2017-01-25 06:11] LABS: DIFF IND NO
[2017-01-25 06:42] LABS: BUN/CREATININE RATIO 28.88; CALCIUM SERUM 9.2 mg/dL (8.4-10.2); CREATININE SERUM 0.9 mg/dL (0.6-1.4); GLOM FILT RATE Estimated 102.1 mL/min (>60); POTASSIUM 4.8 mmol/L (3.5-5.1)
[2017-01-26 06:40] LABS: CALCIUM SERUM 9.2 mg/dL (8.4-10.2); GLOM FILT RATE Estimated 89.9 mL/min (>60); MAGNESIUM 1.5 mg/dL (1.6-3.0); POTASSIUM 4.6 mmol/L (3.5-5.1)
[2017-01-26] MEDS ORDERED: ACETAMINOPHEN650 M4 PO (12:40)
[2017-01-26] MEDS ORDERED: PERCOCET 7.5-31 EACH PO (12:42)
== END 2017-01-26 12:55 | disposition home or self-care (01) | DRG 571 ==
LOC: CED 14:18 → CFTX 14:18 → CED 16:00 → CFTX 16:00 → CEDOF 19:25 → CED 19:27 → C2A 19:27 → CEDOF 19:27 → C2A 20:46
PROVIDERS: Family Medicine; Internal Medicine; Physician Assistant; Surgery
PROC: 0JBF0ZZ Excision of Left Upper Arm Subcutaneous Tissue and Fascia, Open Approach (ICD-10-PCS; principal; 2017-01-25 11:30)
DX: L03.114 Cellulitis of left upper limb (principal); E87.1 Hypo-osmolality and hyponatremia; E83.42 Hypomagnesemia; I10 Essential (primary) hypertension; B95.61 Methicillin susceptible Staphylococcus aureus infection as the cause of diseases classified elsewhere; E11.9 Type 2 diabetes mellitus without complications; Z79.84 Long term (current) use of oral hypoglycemic drugs; L02.414 Cutaneous abscess of left upper limb
CPT/HCPCS: 10060; 36415; 80048; 82947; 83735; 85025; 87040; 87070; 87075; 87077; 87186; 87205; 88304; 88312; 96365; 99284; J1815; J2250; J2543; J2710; J3010; J3370